=== PATIENT | male | born 1990 | race Caucasian/White ===

== ENCOUNTER 2017-05-14 15:41 | Emergency (ER) | payer SELFPAY ==
[~2017-05-14] VITALS: Ht 190.5 cm; Wt 79.4 kg
[2017-05-14] MEDS ORDERED: GABA-534 PO (15:55)
[2017-05-14] MEDS ORDERED: BUPR-96 PO (15:55)
[2017-05-14] MEDS ORDERED: TRAZ-147 PO (15:56)
--- NOTE | 2017-05-14 15:59 | NUR ---
PT IS IN ROOM #2B. DR CADET EVALUATED THE PT.
--- NOTE | 2017-05-14 17:54 | NUR ---
PT WAS D/C TO HOME. D/C INSTRUCTIONS GIVEN TO THE PT.
[2017-05-14 17:55] VITALS: BP 129/79
== END 2017-05-14 18:11 | disposition home or self-care (01) ==
LOC: ER 15:42
DX: S61.210A Laceration without foreign body of right index finger without damage to nail, initial encounter (principal); X58.XXXA Exposure to other specified factors, initial encounter; Y93.89 Activity, other specified; Y92.89 Other specified places as the place of occurrence of the external cause; Y99.8 Other external cause status
CPT/HCPCS: 73140; 90715; A4663; J3490

== ENCOUNTER 2017-05-17 12:24 | Emergency (ER) | payer SELFPAY ==
[~2017-05-17] VITALS: Ht 190.5 cm; Wt 79.4 kg
[~2017-05-17 12:24] MED LIST: BUPR-96 PO; GABA-534 PO; TRAZ-147 PO
--- NOTE | 2017-05-17 12:36 | NUR ---
Patient discharged to home in stable conditon. Written and verbal after care instructions given. Patient verbalizes understanding of instructions.
== END 2017-05-17 12:38 | disposition home or self-care (01) ==
LOC: ER 12:24
DX: S61.210D Laceration without foreign body of right index finger without damage to nail, subsequent encounter (principal); X58.XXXD Exposure to other specified factors, subsequent encounter; Y92.89 Other specified places as the place of occurrence of the external cause; Y99.8 Other external cause status
CPT/HCPCS: A4663